=== PATIENT | male | born 1995 | race Caucasian/White ===

== ENCOUNTER 2023-10-02 11:52 | Emergency (ER) | payer OTHER, SELFPAY ==
[2023-10-02 11:54] VITALS: BP 122/74
[2023-10-02 12:22] VITALS: BMI 32.2
[2023-10-02 12:50] LABS: % Basophils 0.3 % (0-2); % Eosinophils 0.1 % (0-6); % Immature Granulocytes 0.2 % (0-0.5); % Lymphocytes 2.3 % (20.5-51.1); % Monocytes 3.1 % (1.7-9.3); Absolute Lymphocytes 0.3 10^3/uL (1.2-3.4); Absolute Monocytes 0.4 10^3/uL (0.1-0.6); Hematocrit 47.4 % (39.0-52.0); Hemoglobin 16.5 g/dL (13.0-18.0); Mean Corp Hgb Conc. 34.8 g/dL (33.0-37.0); Mean Corpuscular Hgb 28.6 pg (27.0-31.0); Mean Corpuscular Volume 82.1 fL (80.0-94.0); Mean Platelet Volume 10.4 fL (7.4-10.4); Nucleated Red Blood Cells % 0 % (-); Platelet Count 297 10^3/uL (130-400); Red Blood Cell Count 5.77 10^6/uL (4.70-6.10); Red Cell Dist. Width 12.8 % (11.5-14.5); White Blood Cell Count 12.8 10^3/uL (4.8-10.8)
--- NOTE | 2023-10-02 12:57 | ED.GENMED ---
History of Present Illness
General
Chief Complaint: Abdominal Symptoms
Source: patient and family (Father)
Exam Limitations: none
Time Seen by Provider: 10/02/23 12:09
Nursing documentation reviewed up to this point in time: agreed with
Travel History
Have you had any contact with someone who has COVID-19?: No
Do you have any symptoms of coronavirus? Fever > 100 degrees, chills, cough, shortness of breath, sore throat, loss of taste or smell, muscle aches, or headache?: No
History of Present Illness
History of Present Illness:
28-year-old male with past medical history of GERD presents to the emergency room for evaluation of GI symptoms. Patient reports that his fianc�e has been sick with stomach bug including nausea/vomiting, diarrhea. Last night around 5 AM patient
woke up with the same symptoms�he says that he has been most of the day with intermittent nausea, nonbloody emesis, nonbloody liquid diarrhea. He says that he thinks he is becoming dehydrated which prompted him to come to the emergency room. He
denies any abdominal pain associate with his symptoms. He says he has a very mild headache. He denies any fever or chills. He denies any other complaints today.
Review of Systems
Review of Systems
All Other Systems: ROS reviewed and negative except as documented in HPI and ROS
Constitutional: Denies fever or chills
EENT: Denies sore throat or runny nose
Respiratory: Denies cough or trouble breathing
Cardiac: Denies chest pain or palpitations
ABD/GI: Reports nausea, vomiting and diarrhea; Denies abdominal pain or bloody stools
: Denies flank pain
Musculoskeletal: Denies neck pain or back pain
Neurological: Reports headache; Denies weakness or numbness
Phy Exam
Physical Exam
Physical Exam:
General: Awake, alert, oriented x3; no acute distress
Head: Normocephalic, atraumatic
Eyes: Conjunctiva normal, sclera anicteric
Throat: Airway intact, mucous membranes dry
Neck: Trachea midline, supple without meningismus
Lungs: Clear to auscultation bilaterally, no wheezing, rales, rhonchi
Heart: Tachycardia with regular rhythm, no murmurs, gallops, or rubs
Abd: Soft, non distended, nontender to deep palpation
Neuro: No gross deficits
Skin: no rash
Extremities: Warm, well-perfused with no edema
Scores
Heart Failure Risk
Heart Failure Risk Score: Not Applicable
Heart Score for Chest Pain Patients
STEMI patient?: Not applicable
Withdrawal Assessment of Alcohol
Withdrawal Assessment Completed?: Not applicable
Course
Orders/Labs/Results
Orders:
Orders
10/02/23 12:40
CMP [Comprehensive Metabolic Panel] Urgent
Complete Blood Count/With Diff Urgent
Magnesium Urgent
Comment: ADD ON
10/02/23 12:56
Norovirus by PCR Urgent
JUAN Source: Feces/Stool
Specimen Description:
STOOL [C difficile Antigen & Toxins] Urgent
JUAN Source: Feces/Stool
Specimen Description:
Stool Culture Urgent
JUAN Source: Feces/Stool
Specimen Description:
10/02/23 12:57
0.9% Sodium Chloride 1000 ml [Nss] 1,000 ml IV BOLUS
Ondansetron Injectable [Zofran] 4 mg IV NOW STA
10/02/23 13:02
Add On- LAB Urgent
Tests Added?: Mg level
10/02/23 13:44
COVID-19 Antigen Urgent
Source: Nasal Swab
Influenza A+B Rapid Molecular Urgent
JUAN Source: Nasal Swab
Specimen Description:
10/02/23 14:[address] Non Medication Order As Directed
Physician Order: PO CHALLENGE
10/02/23 15:41
Acetaminophen [Tylenol] 1,000 mg .ROUTE .STK-MED ONE
10/02/23 15:42
Acetaminophen [Tylenol] 1,000 mg PO NOW STA
Abnormal Lab Results
10/02/23
12:40
WBC 12.8 H 10^3/uL
(4.8-10.8)
Absolute Neuts (auto) 12.0 H 10^3/uL
(1.4-6.5)
Absolute Lymphs (auto) 0.3 L 10^3/uL
(1.2-3.4)
Neutrophils % 94.0 H %
(42.2-75.2)
Lymphocytes % 2.3 L %
(20.5-51.1)
BUN 29 H mg/dl
(9-20)
Glucose 138 H mg/dl
(70-99)
Calcium 10.9 H mg/dl
(8.4-10.2)
ALT 59 H U/L
(0-50)
Total Protein 8.9 H g/dl
(6.3-8.2)
Albumin 5.5 H g/dl
(3.5-5.0)
10/02/23 12:40
10/02/23 12:40
Vital Signs
Initial and Last Documented VS:
Initial Vital Signs
Temp Pulse BP Pulse Ox
37.7 C 117 122/74 100
10/02/23 11:54 10/02/23 11:54 10/02/23 11:54 10/02/23 11:54
Last Documented Vital Signs
Temp Pulse Resp BP Pulse Ox
37.7 C 93 18 132/84 100
10/02/23 11:54 10/02/23 15:25 10/02/23 15:25 10/02/23 15:25 10/02/23 15:25
MDM/Problems Addressed
Differential Diagnosis Includes:
Gastritis, enteritis, colitis, food poisoning
MDM/Problems Addressed:
28-year-old male presents for evaluation of nausea, vomiting, diarrhea that started at 5 [facility]� sick with similar symptoms. Believes he is getting dehydrated and so he came to the emergency room for assessment. He is tachycardic here but has
otherwise normal vitals. Physical exam as above. He does appear dry. Will plan to place an IV check labs including a CBC and a CMP, magnesium level. Will check viral swabs, send stool studies if able. Will provide IV fluids and IV Zofran.
Monitor closely reassess after the above. No clear indication for abdominal imaging at this point--he has no pain, no tenderness on exam.
Labs reviewed: CBC shows marginal leukocytosis, CMP no clinically significant abnormalities. Patient feeling much better after fluids and Zofran. He is tolerating p.o. here without issue. He has not had additional vomiting or diarrhea. Suspect
likely gastroenteritis and acute dehydration. Will plan to discharge with Zofran as needed for nausea advised to drink plenty of fluids. He feels comfortable with this plan. Spoke about return precautions all questions answered.
*Pulse Oximetry
Patient hypoxic: no
*Critical Care Note
Total Time (30-74mins, 75-104mins- exclusive of procedures): Not Applicable
Data Reviewed
Source: patient and family
Further Testing Considered But Not Given:
Considered CT of the abdomen and pelvis
ED Attending Note
-
Portions of this chart may have been created with voice recognition software.� Occasional wrong word or��sound alike� substitutions may have occurred due to the inherent limitations of voice recognition software.
Discharge Plan
Departure
Patient Disposition: Home (Routine Discharge)
Date of Disposition: 10/02/23
Time of Disposition: 16:29
Patient with high blood pressure during this ER visit?: No
Discharge Problem:
Nausea and vomiting, Gastroenteritis, Acute dehydration
Instructions: Viral gastroenteritis in adults, Dehydration, Adult (DC), Nausea and Vomiting, Adult (DC)
Prescriptions:
New
ondansetron 4 mg tablet,disintegrating
4 mg PO TIDPRN PRN (Reason: nausea/vomiting) Qty: 20 0RF
Referrals:
Martinez Hui, [Family Provider] - Call in 1-3 days for appt
Activity Restrictions/Additional Instructions:
Thank you for visiting the Emergency Department at [facility].
1. Please schedule a follow up appointment as directed. Call first thing tomorrow morning to make an appointment.
2. If indicated, please take your medications as instructed and indicated on discharge paperwork.
3. If any of your symptoms do not improve, or persist, or become more severe within 6-12 hours, please return to the emergency department for further care.
4. Please return to the emergency department if you develop a headache, neck pain/stiffness, fever greater than 100.4F, chest pain, shortness of breath, persistent nausea, vomiting, slurred speech, difficulty walking, numbness/tingling, weakness,
signs of infection or any other symptoms that are worrisome to you.
Please call [phone] if you have any questions.
Interventions
Interventions:
*Risk Screen - Suicide Last Done: 10/02/23 12:23
*General Assessment Last Done: 10/02/23 12:22
*Neglect/Abuse Screening Last Done: 10/02/23 12:23
*ED COVID-19 Vaccine History Last Done: 10/02/23 11:58
QK-Uguaeg-Fhnpthxdxf Assessment Last Done: 10/02/23 12:21
Discharge Date and Time
Print Language: BULGARIAN
[2023-10-02 13:01] LABS: ALT (SGPT) 59 U/L (0-50); AST (SGOT) 42 U/L (17-59); Albumin 5.5 g/dl (3.5-5.0); Alkaline Phosphatase 66 U/L (38-126); Blood Urea Nitrogen 29 mg/dl (9-20); Calcium 10.9 mg/dl (8.4-10.2); Carbon Dioxide 24 mmol/L (22-30); Chloride 103 mmol/L (98-107); Estimated Creatinine Clearance 115 ml/min; Glucose 138 mg/dl (70-99); Sodium 138 mmol/L (135-145); Total Bilirubin 1.1 mg/dl (0.2-1.3); Total Protein 8.9 g/dl (6.3-8.2); eGFR > 60.00
[2023-10-02] MEDS: NSS 1000 IV (13:12)
[2023-10-02] MEDS: ZOFRAN 4 MG IV (13:12)
[2023-10-02 13:26] VITALS: BP 132/69
[2023-10-02 13:47] LABS: Magnesium 1.6 mg/dl (1.6-2.3)
[2023-10-02 14:03] LABS: COVID-19 Antigen Negative (Negative)
[2023-10-02 15:25] VITALS: BP 132/84
[2023-10-02] MEDS: TYLENOL 1000 MG PO (15:43)
[2023-10-02 16:30] VITALS: BP 135/78
== END 2023-10-02 17:09 | disposition home or self-care (01) ==
LOC: EMR 11:52
PROVIDERS: EMERGENCY PHYSICIAN Emergency Medicine; FAMILY PHYSICIAN Family Medicine
DX: R11.2 Nausea with vomiting, unspecified (principal); K52.9 Noninfective gastroenteritis and colitis, unspecified; E86.0 Dehydration; K21.9 Gastro-esophageal reflux disease without esophagitis
CPT/HCPCS: 99284; 96374; 96361; 80053; 83735; 85025; 87502; 87811